=== PATIENT | male | born 1950 | race Caucasian/White ===

== ENCOUNTER → 2018-07-26 | Outpatient (CLI) | payer OTHER ==
[~2018-07-26] MED LIST: ALLEGRA-D 12 H1 EAC1 PO; COLACE100 MG PO; GABADONE CAPSU1 EACH; GABAPENTIN PO; LEVOXYL150 MCG PO; LEVOXYL25 MCG; LIPITOR; LIPITOR10 MG PO; LISINOPRIL2.5 MG; LISINOPRIL20 MG PO; VICODIN 5-5001 EACH PO
[2018-07-26 09:46] LABS: CREATININE 1.3 mg/dL (0.6-1.3)
== END ==
LOC: M.LAB 09:16 → M.CT 11:00
PROVIDERS: Surgery
DX: N28.1 Cyst of kidney, acquired (principal); K40.90 Unilateral inguinal hernia, without obstruction or gangrene, not specified as recurrent; I10 Essential (primary) hypertension; Z85.46 Personal history of malignant neoplasm of prostate

== ENCOUNTER → 2018-08-10 | Day surgery (SDC) | payer OTHER ==
[~2018-08-10] MED LIST changes: +LISINOPRIL-HCT1 EAC1 PO; +NORCO 5-325 TA1 EACH PO; +OMEPRAZOLE 20 M20 M1 PO; +SINGULAIR 10 MG10 M1 PO; +SYNTHROID137 MC1 PO
--- NOTE | ~2018-08-10 | OP ---
[facility] [address] [place] [address] OPERATIVE REPORT Name: KIARAEARLENE LEE Room: [facility]#: [id number] Admission: 08/10/18 Attend Phys: Mark Anthony Street DO Discharge: Date of : 54 Report #: [id number] THIS REPORT FOR: //name// CC: Mark Anthony Pedersen MD DATE OF SERVICE: 08/10/2018 PREOPERATIVE DIAGNOSIS: Bilateral inguinal hernia. POSTOPERATIVE DIAGNOSIS: Bilateral inguinal hernia. PROCEDURE: Da Reena robotic-assisted laparoscopic bilateral inguinal hernia repair with mesh. SURGEON: Mark Anthony Street DO. ACTIVITY THERAPY TEACHER: Gus Triplett DO. REFERRING PHYSICIAN: Anastacia Pedersen M.D. ANESTHESIA: General endotracheal. ESTIMATED BLOOD LOSS: Less than 20 mL. COMPLICATIONS: None. DESCRIPTION OF PROCEDURE: After obtaining proper consents and discussing risks and complications with the patient, he was taken to the operating room, laid in the supine position and administered general anesthesia. He was then prepped and draped in the usual fashion. A timeout was performed. We confirmed the appropriate patient and procedure. Preoperative antibiotics had been given. SCDs were in place. We then made a small supraumbilical skin incision with #11 scalpel blade. This was carried down through the skin into the subcutaneous tissue using electrocautery for hemostasis. Once the fascia was encountered, it was incised along the midline. The peritoneum was then bluntly opened using a hemostat. A 2-0 Vicryl sutures were placed in a [id number] fashion in the fascia to secure the da Reena robotic port, which was then inserted and insufflation was begun. Once insufflation was complete, full visual inspection of the anterior abdominal organs was performed. This revealed both a left and right inguinal hernia; on the left side, there was both a direct and indirect and on the right side, there was just an indirect. We then placed two more trocars. A 12-mm Visiport was placed in the right upper quadrant and an 8-mm da Reena robotic port was placed in the left upper quadrant. I then docked the da Reena robot. Once the robot was docked, we then [place] [id number] OPERATIVE REPORT Name: KIARAEARLENE JESUS Room: [facility].#: [id number] Admission: 08/10/18 Attend Phys: Mark Anthony Street DO Discharge: Date of : 54 Report #: [id number] grasper in the left upper quadrant and monopolar scissors in the right upper quadrant. I then broke scrub and went on console. Once on the console, I was able to identify the ASIS on both the right and left sides. I then opened the median umbilical ligament, starting on the left side, extending this peritoneal flap all the way to the ASIS. I then dissected beginning medially all the way down to the pubic ramus and below that and medially to the pubic tubercle. I then continued the dissection laterally and dissected free the direct inguinal hernia sac and inverted its contents back into the peritoneal cavity. I then continued dissection to the spermatic cord, where I identified an indirect inguinal hernia and a cord lipoma. These were both dissected free and then reduced back. I then continued the dissection all the way laterally to the ASIS. I then turned my attention to the right side, where a similar flap was opened from the median umbilical ligament all the way laterally to the ASIS. I then dissected all the way down medially to the pubic ramus and below that and medially to the pubic tubercle. I then dissected the hernia sac free from the cord structures all the way back to the peritoneum. The flap was then opened more laterally all the way to the ASIS. I then inserted a large 3D Max mesh in both the right and left side. This was sutured in place to Pb's ligament medially on both sides and then also medial and lateral to the inferior epigastric vessels on both sides. I then closed the peritoneal flap on both sides using running 2-0 V-Loc absorbable suture. I then rescrubbed and went back to the patient's bedside, where we undocked the da Reena robot. I then removed the right and left upper quadrant ports and used a PMI closure device with 0 Vicryl suture to close the fascia for both of these ports. I then removed the camera port and closed the umbilical fascia using the 2 previously placed 0 Vicryl sutures plus 2 additional 0 Vicryl sutures. Skin incisions were all closed using 4-0 Monocryl subcuticular stitch. Mastisol, Steri-Strips, sterile OpSite and pressure dressings were placed. The patient was awakened in the operating room and transported to the recovery room in stable condition. By: [id number] DO /aruna
[2018-08-10 09:06] LABS: HEMATOCRIT 45.7 % (42.0-52.0); HEMOGLOBIN 15.9 gm/dL (14.0-18.0); MCH 29.8 pg (26.0-34.0); MCHC 34.7 g/dL (28.0-37.0); MCV 85.7 fL (80.0-100.0); MPV 9.1 fl. (7.2-11.1); RBC 5.33 mil/uL (4.50-6.00); RDW-CV 12.6 % (10.5-14.5); WBC 4.2 thou/uL (4.0-11.0)
[2018-08-10 09:17] LABS: ALBUMIN 4.1 g/dL (3.4-5.0); CREATININE 1.2 mg/dL (0.6-1.3); POTASSIUM 3.6 mmol/L (3.5-5.1); TOTAL BILIRUBIN 0.9 mg/dL (<0.1-1.0); TOTAL PROTEIN 7.1 g/dL (6.4-8.2)
--- NOTE | 2018-08-10 11:22 | EKG ---
[place] [address] ELECTROCARDIOGRAM REPORT Name: EARLENE CRAIG Room: [facility].#: [id number] Admission: 08/10/18 Attend Phys: Mark Anthony Street DO Discharge: Date of : 54 Report #: [id number] THIS REPORT FOR: //name// [facility] Test Date: 2018-08-10 Test Time: 08:50:40 Pat Name: EARLENE CRAIG Department: Room: Gender: Jinriksha Driver: : 1950 Requested By: Mark Anthony Street Order Number: [id number] Reading MD: Luis Sarabia Measurements Intervals [place] Rate: 65 P: 12 IA: 164 QRS: -1 QRSD: 96 T: 73 QT: 327 QTc: 340 Interpretive Statements Sinus rhythm Borderline T wave abnormalities No previous ECG available for comparison Electronically Signed On 08-10-2018 11:22:07 HAT MEASURER by Luis Sarabia [email or web address] <ELECTRONICALLY SIGNED> By: Luis Sarabia MD, [facility] 08/10/18 1122 0850 0850 Luis Sarabia MD, FACC /EPI
== END | disposition home or self-care (01) ==
LOC: M.SUR 08-09 06:42
PROVIDERS: Surgery
DX: K40.20 Bilateral inguinal hernia, without obstruction or gangrene, not specified as recurrent (principal); Z98.890 Other specified postprocedural states; Z79.899 Other long term (current) drug therapy; Z79.891 Long term (current) use of opiate analgesic

== ENCOUNTER → 2018-09-05 | Outpatient (CLI) | payer OTHER | LOC: M.CT 07:53 | DX: K40.90 Unilateral inguinal hernia, without obstruction or gangrene, not specified as recurrent (principal); N20.0 Calculus of kidney; N26.1 Atrophy of kidney (terminal); N50.89 Other specified disorders of the male genital organs ==